=== PATIENT | male | born 1955 | race Caucasian/White ===

== ENCOUNTER 2022-03-13 15:43 | Emergency (ER) | payer MEDICAID ==
[~2022-03-13] VITALS: Ht 175.3 cm; Wt 72.7 kg
[2022-03-13 16:27] VITALS: BP 127/80
== END 2022-03-13 19:14 | disposition home or self-care (01) ==
LOC: ER 15:44
DX: Z76.0 Encounter for issue of repeat prescription (principal)
CPT/HCPCS: 36415; 85610; 99283

== ENCOUNTER 2022-04-10 21:24 | Emergency (ER) | payer MEDICARE, MEDICAID ==
[~2022-04-10] VITALS: Ht 175.3 cm; Wt 72.7 kg
[2022-04-10 22:00] VITALS: BP 96/49
[2022-04-10 22:49] LABS: BASOPHILS % (AUTO) 0.1 % (0-1); EOSINOPHILS # (AUTO) 0.1 X10'3 (0-0.9); EOSINOPHILS % (AUTO) 0.9 % (0-6); HEMATOCRIT 39.2 % (42.0-52.0); LYMPHOCYTES # (AUTO) 1.9 X10'3 (1.1-4.8); MEAN CORPUSCULAR HEMOGLOBIN 29.8 PG (27.0-31.0); MEAN CORPUSCULAR HGB CONC 33.2 g/dL (33.0-36.5); MEAN CORPUSCULAR VOLUME 89.9 FL (78-98); MEAN PLATELET VOLUME 8.8 FL (7.4-10.4); MONOCYTES # (AUTO) 0.9 X10'3 (0-0.9); MONOCYTES % (AUTO) 6.1 % (2-12); NEUTROPHILS # (AUTO) 11.5 X10'3 (1.8-7.7); NEUTROPHILS % (AUTO) 79.9 % (42-75); PLATELET COUNT 224 X10'3 (140-440); RED BLOOD COUNT 4.36 X10'6 (4.70-6.10); RED CELL DISTRIBUTION WIDTH 13.9 % (11.5-14.5); WHITE BLOOD COUNT 14.4 X10'3 (4.5-11.0)
[2022-04-10 23:12] LABS: ALANINE AMINOTRANSFERASE 25 U/L (12-78); ALBUMIN 3.6 G/DL (3.4-5.0); ALKALINE PHOSPHATASE 78 IU/L (46-116); ANION GAP 5 (8-16); ASPARTATE AMINO TRANSFERASE 17 U/L (10-37); BILIRUBIN,TOTAL 0.5 MG/DL (0.1-1.0); BLOOD UREA NITROGEN 32 MG/DL (7-18); BUN/CREATININE RATIO 19.3 (5.4-32.0); CALCIUM 8.9 MG/DL (8.5-10.1); CHLORIDE 105 MMOL/L (99-107); CREATININE 1.66 MG/DL (0.60-1.10); GLUCOSE 116 MG/DL (70-104); SODIUM 138 MMOL/L (135-145); TOTAL CARBON DIOXIDE 27.8 MMOL/L (24-32); TOTAL PROTEIN 7.3 G/DL (6.4-8.2); eGFR 42 ML/MIN
== END 2022-04-11 01:14 | disposition left against medical advice (07) ==
LOC: ER 21:24
DX: R42 Dizziness and giddiness (principal); R11.0 Nausea; Z53.21 Procedure and treatment not carried out due to patient leaving prior to being seen by health care provider
CPT/HCPCS: 36415; 80053; 83880; 84484; 85025; 93005

== ENCOUNTER 2022-06-23 18:30 | Inpatient (IN) | payer MEDICARE, MEDICAID ==
[~2022-06-23] VITALS: Ht 175.3 cm; Wt 74.1 kg
[2022-06-24 09:27] VITALS: BP 126/78
[2022-06-24] MEDS ORDERED: mag hydrox/Alum hydrox/simeth 30ml oral suspension PO PRN (09:30)
[2022-06-24] MEDS ORDERED: magnesium hydroxide 30ml (MOM) UD suspension PO PRN (09:30)
[2022-06-24] MEDS ORDERED: acetaminophen 325mg tablet PO PRN ×2 (09:30)
--- NOTE | 2022-06-24 09:38 | NUR ---
Admit note: Pt admitted today on 5150 for DTS from [facility] at 0904. Pt tried to overdose on Benadryl and continues to endorse suicidal thoughts, saying if he goes back there right now he will try to kill himself again. Pt has history of schizophrenia, HTN, CAD, heart failure, pacemaker. Addendum: 06/24/22 at 1545 by Margaret Price RN Pt. scores as a high risk on the [place] Suicide Risk Assessment, however he is able to contract for safety while on the unit. This was endorsed to GERMAN Plummer and Ajith 15min safety checks were ordered.
[2022-06-24] MEDS ORDERED: LISI10TA27 PO (10:35)
[2022-06-24] MEDS ORDERED: FLO0.4C PO (10:35)
[2022-06-24] MEDS ORDERED: ATOR40TA PO (10:35)
[2022-06-24] MEDS ORDERED: ACYC-1 PO (10:35)
[2022-06-24] MEDS ORDERED: hydralazine hcl PO (10:35)
[2022-06-24] MEDS ORDERED: APIX5TAB3 PO (10:46)
[2022-06-24] MEDS ORDERED: MELA3TAB41 PO (10:46)
[2022-06-24] MEDS ORDERED: SPIR25TA5 PO (10:46)
[2022-06-24] MEDS ORDERED: CARV3.122 PO (10:46)
[2022-06-24] MEDS ORDERED: FURO40TA4 PO (10:46)
[2022-06-24] MEDS: atorvastatin 20mg tablet PO SCH (12:10)
[2022-06-24] MEDS: apixaban 5mg tablet PO SCH ×2 (12:10→20:05)
[2022-06-24] MEDS: hyDRALAzine 10mg tablet PO SCH ×2 (12:11→21:25)
--- NOTE | 2022-06-24 12:17 | NUR ---
Pt's medications were reviewed with RN from [facility] ER by this technical document writer. Per [facility], RN pt. had not received his medications this AM before being transported. Scheduled medications will be administered to pt. at this time.
--- NOTE | 2022-06-24 15:45 | NUR ---
Problem : Pt admitted today on 5150 for DTS from [facility] at 0904. Pt tried to overdose on Benadryl and continues to endorse suicidal thoughts, saying if he goes back there right now he will try to kill himself again. Pt has history of schizophrenia, HTN, CAD, heart failure, pacemaker. Interventions : Introduced self and established rapport, maintained a safe and therapeutic environment, ensured contract for safety while on the unit, clarified medications, provided clear and simple instructions, attempted to orient to reality, provided redirection as needed, and maintained Q 15min safety checks. Response : Pt. was cooperative with the admission assessment, however appears to be hypomanic and presents with pressured and hyperverbal speech. He is tangental and requires frequent redirection back on topic. Pt. reports ongoing S/I with a plan to overdose if released from the hospital. When questioned regarding the cause, pt. states he is upset because "They" are trying to send him back to [facility]. He does not specify who he is referring to, but continues on to talk about how he was previously in shelter for eleven years. Pt. reports his previously and he has no friends or family here. 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 Pt. then points to a picture of a spaceship in the book and states, "I haven't gotten Covid because I was visited by extraterrestrials." Pt. remains up on the unit during the shift and perseverates on what medications he takes and the times he should take them. He requires frequent education and reassurance regarding his medications. This card writer hand will provide pt. with a list of his medications. Pt. has andreas hose in place on his legs which he reports his doctor told him to wear at all times r/t a history of heart failure, will endorse to Noc shift. Plan : Pt. requires a safe and supportive environment and medication adjustments.
[2022-06-24] MEDS: spironolactone 25 MG tablet PO SCH (17:00)
[2022-06-24 17:39] VITALS: BP 114/61
[2022-06-24 20:00] VITALS: BP 130/84
[2022-06-24] MEDS: acyclovir 200 MG capsule PO SCH (20:05)
[2022-06-24] MEDS: Melatonin 3mg tablet PO SCH (20:05)
[2022-06-24] MEDS: carVEDilol 3.125mg tablet PO SCH (20:05)
--- NOTE | 2022-06-25 02:07 | NUR ---
Problem : Pt admitted 06/24 on 5150 for DTS from [facility] at 0904. Pt tried to overdose on Benadryl and continues to endorse suicidal thoughts, saying if he goes back there right now he will try to kill himself again. Pt has history of schizophrenia, HTN, CAD, heart failure, pacemaker. Interventions : Introduced self and established rapport, maintained a safe and therapeutic environment, ensured contract for safety while on the unit, clarified medications, provided clear and simple instructions, attempted to orient to reality, provided redirection as needed, and maintained Q 15min safety checks. Response : This patient primarily isolates in his room following shift change. He is hyperverbal and exhibits grandiose behavior. At times he presents with tangential speech. Patient speaks some Azeri, Zimbabwean, Khmer, and other languages not known to this song writer. He presents with a thick accent. Plan : Pt. requires a safe and supportive environment and medication adjustments. Patient is ambulatory, relatively cooperative, he is concerned about his health. Patient is wearing Luis M hose bilaterally. Patient denies S/I, H/I, hallucinations are unknown. The patient slept after medication pass. Plan: Patient is a conserved patient and continues to require medication stabilization and management in a safe and therapeutic milieu. Addendum: 06/25/22 at 0218 by Luis M Harrison RN Nursing Note for Edilberto Marks Addendum: 06/25/22 at 0402 by Luis M Harrison RN Per another RN this patient was intrusive and verbally threatening his roommate during the evening.
[2022-06-25] MEDS: carVEDilol 3.125mg tablet PO SCH ×2 (08:07→20:03)
[2022-06-25] MEDS: tamsulosin 0.4mg capsule PO SCH (08:08)
[2022-06-25] MEDS: acyclovir 200 MG capsule PO SCH ×2 (08:08→20:05)
[2022-06-25] MEDS: apixaban 5mg tablet PO SCH ×2 (08:08→20:05)
[2022-06-25] MEDS: sertraline 25mg tablet PO SCH (08:08)
[2022-06-25] MEDS: lisinopril 10 MG tablet PO SCH (08:09)
[2022-06-25] MEDS: atorvastatin 20mg tablet PO SCH ×2 (08:10→18:27)
[2022-06-25] MEDS: furosemide 40mg tablet PO SCH (08:10)
[2022-06-25] MEDS: hyDRALAzine 10mg tablet PO SCH ×3 (08:10→20:06)
[2022-06-25 08:41] VITALS: BP 119/54
[2022-06-25 10:20] LABS: HEMOGLOBIN A1C 5.7 % (4.5-6.2)
[2022-06-25 10:25] LABS: CHOLESTEROL 132 MG/DL (0-200); HDL CHOLESTEROL 67 MG/DL (35-60); LDL CHOLESTEROL 46 MG/DL (50-100); TRIGLYCERIDES 92 MG/DL (20-135)
--- NOTE | 2022-06-25 16:27 | NUR ---
Nursing Progress Note: Problem : Pt admitted today on 5150 for DTS from [facility] at 0904. Pt tried to overdose on Benadryl and continues to endorse suicidal thoughts, saying if he goes back there right now he will try to kill himself again. Pt has history of schizophrenia, HTN, CAD, heart failure, pacemaker. Interventions : Introduced self and established rapport, maintained a safe and therapeutic environment, ensured contract for safety while on the unit, clarified medications, provided clear and simple instructions, attempted to orient to reality, provided redirection as needed, and maintained Q 15min safety checks. Response: Patient sleeping at shift change. Patient awoke for breakfast and medications. Patient denies SI. Patient is hyperverbal with pressured speech and is difficult to understand due to his accent and the fact that he is edentulous. Patient reports that he has traveled all over the world and speaks several foreign languages including Maori, Syriac, and Telugu. Patient mostly isolated to his room today. Carries a book with him, but did not observe him reading it. Patient reports that the police have his belongings and would not release them to him. Patient took all medications as prescribed and no side effects were noted. Plan : Pt. requires a safe and supportive environment and medication adjustments.
[2022-06-25] MEDS: spironolactone 25 MG tablet PO SCH (17:56)
[2022-06-25] MEDS: loperamide 2mg capsule PO PRN (17:59)
[2022-06-25 19:57] VITALS: BP 117/79
[2022-06-25] MEDS: Melatonin 3mg tablet PO SCH (20:05)
--- NOTE | 2022-06-26 03:21 | NUR ---
Nursing Progress Note: Problem : Pt admitted today on 5150 for DTS from [facility] at 0904. Pt tried to overdose on Benadryl and continues to endorse suicidal thoughts, saying if he goes back there right now he will try to kill himself again. Pt has history of schizophrenia, HTN, CAD, heart failure, pacemaker. Interventions : Introduced self and established rapport, maintained a safe and therapeutic environment, ensured contract for safety while on the unit, clarified medications, provided clear and simple instructions, attempted to orient to reality, provided redirection as needed, and maintained Q 15min safety checks. Response: Patient is somewhat hyperverbal at times, delusional too. He is medication compliant. Less labile than the previous NOC shift, less intrusive towards his roommate this shift. He denies S/I or H/I. Unknown hallucinations. Plan : Pt. requires a safe and supportive environment and medication adjustments.
[2022-06-26 07:00] VITALS: BP 138/67
[2022-06-26 07:45] LABS: ALBUMIN 3.7 G/DL (3.4-5.0); ANION GAP 7 (8-16); BLOOD UREA NITROGEN 13 MG/DL (7-18); BUN/CREATININE RATIO 19.7 (5.4-32.0); CALCIUM 8.4 MG/DL (8.5-10.1); CHLORIDE 108 MMOL/L (99-107); CREATININE 0.66 MG/DL (0.60-1.10); GLUCOSE 108 MG/DL (70-104); SODIUM 142 MMOL/L (135-145); TOTAL CARBON DIOXIDE 27.5 MMOL/L (24-32); eGFR > 90 ML/MIN
[2022-06-26] MEDS: acyclovir 200 MG capsule PO SCH ×2 (08:32→20:04)
[2022-06-26] MEDS: apixaban 5mg tablet PO SCH ×2 (08:32→20:05)
[2022-06-26] MEDS: carVEDilol 3.125mg tablet PO SCH ×2 (08:32→20:06)
[2022-06-26] MEDS: hyDRALAzine 10mg tablet PO SCH ×3 (08:33→20:05)
[2022-06-26] MEDS: sertraline 25mg tablet PO SCH (08:33)
[2022-06-26] MEDS: atorvastatin 20mg tablet PO SCH (08:34)
[2022-06-26] MEDS: tamsulosin 0.4mg capsule PO SCH (08:34)
[2022-06-26] MEDS: furosemide 40mg tablet PO SCH (08:35)
[2022-06-26] MEDS: lisinopril 10 MG tablet PO SCH (08:35)
[2022-06-26] MEDS: loperamide 2mg capsule PO PRN (13:44)
--- NOTE | 2022-06-26 17:19 | NUR ---
Nursing Progress Note: Problem : Pt admitted today on 5150 for DTS from [facility] at 0904. Pt tried to overdose on Benadryl and continues to endorse suicidal thoughts, saying if he goes back there right now he will try to kill himself again. Pt has history of schizophrenia, HTN, CAD, heart failure, pacemaker. Interventions : Introduced self and established rapport, maintained a safe and therapeutic environment, ensured contract for safety while on the unit, clarified medications, provided clear and simple instructions, attempted to orient to reality, provided redirection as needed, and maintained Q 15min safety checks. Response: Received pt sleeping in bed at shift change. Patient awakens and joins his peers in dining room for breakfast. Patient tends to sit by himself, but does talk to his peers occasionally. Patient eats 100% of his meals. Patient has complained of loose stools for the past two days and was given Imodium with effectiveness. Patient later in the day received his 5250 and is insisting that he did not take Benadryl, but that he took something called "sleeping medicine", OTC. Patient has not been intrusive with his roommate today. Patient takes all medications as prescribed. Compliant with all requests. Patient remains hyperverbal and seems to switch languages on occasion while conversing. Plan : Pt. requires a safe and supportive environment and medication adjustments.
[2022-06-26] MEDS: spironolactone 25 MG tablet PO SCH (18:03)
[2022-06-26 19:18] VITALS: BP 127/70
[2022-06-26] MEDS: Melatonin 3mg tablet PO SCH (20:05)
--- NOTE | 2022-06-26 21:34 | NUR ---
Nursing Progress Note: Problem : Pt admitted today on 5150 for DTS from [facility] at 0904. Pt tried to overdose on Benadryl and continues to endorse suicidal thoughts, saying if he goes back there right now he will try to kill himself again. Pt has history of schizophrenia, HTN, CAD, heart failure, pacemaker. Interventions : Introduced self and established rapport, maintained a safe and therapeutic environment, ensured contract for safety while on the unit, clarified medications, provided clear and simple instructions, attempted to orient to reality, provided redirection as needed, and maintained Q 15min safety checks. Response: Pt was in his room at change of shift, then moves to the fernandez chair. pt denies s/i. Pt spends evening sitting alone, isolating to himself. Pt requests meds and went to bed. Shortly after going to bed pt c/o roommate bothering him and pt was moved to another room. Pt seems to be happy with the room change. Plan : Pt. requires a safe and supportive environment and medication adjustments.
--- NOTE | 2022-06-27 07:28 | NUR ---
Initial: Pt admitted w/ suicidal ideations per EMR. Currently on Carb control/Heart Healthy diet w/ mostly 100% intake of meals meeting est needs at this time. Recommend liberalizing to Regular diet given lipid panel and pt does not have hx of DM per EMR and A1c 5.7. LBM 06/24. Will continue to monitor. Recommendations 1. Liberalize to REGULAR DIET; no hx of DM in EMR, non-elevated lipid panel 2. Bowel care PRN 3. Weekly wts Addendum: 06/27/22 at [address]ñez RD Amended: Links added.
[2022-06-27] MEDS: furosemide 40mg tablet PO SCH (07:56)
[2022-06-27] MEDS: lisinopril 10 MG tablet PO SCH (07:56)
[2022-06-27] MEDS: hyDRALAzine 10mg tablet PO SCH ×3 (07:56→20:02)
[2022-06-27] MEDS: sertraline 25mg tablet PO SCH (07:56)
[2022-06-27] MEDS: tamsulosin 0.4mg capsule PO SCH (07:56)
[2022-06-27] MEDS: acyclovir 200 MG capsule PO SCH ×2 (07:56→19:56)
[2022-06-27] MEDS: apixaban 5mg tablet PO SCH ×2 (07:56→19:56)
[2022-06-27] MEDS: carVEDilol 3.125mg tablet PO SCH ×2 (07:56→19:56)
[2022-06-27] MEDS: atorvastatin 20mg tablet PO SCH (07:56)
[2022-06-27 08:00] VITALS: BP 105/66
[2022-06-27 11:59] VITALS: BP 111/66
--- NOTE | 2022-06-27 14:25 | NUR ---
Problem : Pt admitted 06/24 on 5150 for DTS from [facility]. Pt tried to overdose on Benadryl and continues to endorse suicidal thoughts, saying if he goes back to the hotel or to [facility], he will try to kill himself again. Pt has history of schizophrenia, HTN, CAD, heart failure, pacemaker. Interventions : 1:1 assessment, establishment of rapport, maintained a safe and therapeutic environment, ensured contract for safety while on the unit, medication administration/education/monitoring, BP & HR monitoring, provided clear and simple instructions, attempted to orient to reality, provided distraction,redirection, and positive reinforcement, fall prevention, and maintained Q15 min safety checks. Response : Pt was up before breakfast. Pt was cooperative with scheduled medications. Pt is hyperverbal with pressured speech and is somewhat difficult to understand due to heavy accent and no teeth. Pt states that he is "very much depressed." Pt states he doesn't want to return to [facility], there is nothing for him there and if he has to go back, he will be put in penitentiary or he will kill himself by taking too many sleeping pills like before. Pt contracts for safety here on the unit. Pt states he just wants to be placed in a mental hospital. Pt states that he was actually born in [birth year] but his certificate says [birth year], ( date on file is in June.) Pt c/o not sleeping last night, "maybe too much worry." Plan: Pt continues to need medication management and monitoring as well as behavior monitoring in a safe and therapeutic environment to prevent harm to self.
--- NOTE | 2022-06-27 16:30 | NUR ---
Pt moved to room 332B due to noisy roommate who was responding to internal stimuli with loud profanities.
[2022-06-27 17:02] VITALS: BP 112/60
[2022-06-27] MEDS: spironolactone 25 MG tablet PO SCH (17:25)
[2022-06-27 19:26] VITALS: BP 138/62
[2022-06-27] MEDS: Melatonin 3mg tablet PO SCH (19:55)
--- NOTE | 2022-06-27 21:08 | NUR ---
Nursing Progress Note: Problem : Pt admitted 06/24 on 5150 for DTS from [facility]. Pt tried to overdose on Benadryl and continues to endorse suicidal thoughts, saying if he goes back to the hotel or to [facility], he will try to kill himself again. Pt has history of schizophrenia, HTN, CAD, heart failure, pacemaker. Interventions : 1:1 assessment, establishment of rapport, maintained a safe and therapeutic environment, ensured contract for safety while on the unit, medication administration/education/monitoring, BP & HR monitoring, provided clear and simple instructions, attempted to orient to reality, provided distraction,redirection, and positive reinforcement, fall prevention, and maintained Q15 min safety checks. Response : Pt was talking with other patients at change of shift. He reports he was having chest pain and nausea during the day but is no longer having it. Pt reports he is happy with the room change because he didnt like hearing his roommate cussing. He is hopeful he will get better sleep tonight. Pt requests melatonin and informed he will receive melatonin with meds. Pt states this is good. 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 He talks about his book being about a "parallel universe and how the universe was created." Pt talks about having "visions" when he was younger about his brother dying. He believes aliens abducted him and put an implant in his head. Pt states he is Ivorian and Greek and speaks several different languages and has been to many countries. Pt states he came to the [facility] originally to work on the [employer]. pt was in a pleasant mood this evening smiling before going to bed. Plan: Pt continues to need medication management and monitoring as well as behavior monitoring in a safe and therapeutic environment to prevent harm to self.
[2022-06-28 07:57] VITALS: BP 137/66
[2022-06-28] MEDS: carVEDilol 3.125mg tablet PO SCH ×2 (07:59→19:33)
[2022-06-28] MEDS: furosemide 40mg tablet PO SCH (07:59)
[2022-06-28] MEDS: lisinopril 10 MG tablet PO SCH (07:59)
[2022-06-28] MEDS: atorvastatin 20mg tablet PO SCH (07:59)
[2022-06-28] MEDS: hyDRALAzine 10mg tablet PO SCH ×3 (08:00→19:32)
[2022-06-28] MEDS: sertraline 25mg tablet PO SCH (08:00)
[2022-06-28] MEDS: tamsulosin 0.4mg capsule PO SCH (08:00)
[2022-06-28] MEDS: apixaban 5mg tablet PO SCH ×2 (08:00→19:33)
[2022-06-28] MEDS: acyclovir 200 MG capsule PO SCH ×2 (08:00→19:33)
[2022-06-28 12:07] VITALS: BP 121/63
--- NOTE | 2022-06-28 15:58 | NUR ---
Nursing Progress Note: Problem : Pt admitted 06/24 on 5150 for DTS from [facility]. Pt tried to overdose on Benadryl and continues to endorse suicidal thoughts, saying if he goes back to the hotel or to [facility], he will try to kill himself again. Pt has history of schizophrenia, HTN, CAD, heart failure, pacemaker. Interventions : 1:1 assessment, establishment of rapport, maintained a safe and therapeutic environment, ensured contract for safety while on the unit, medication administration/education/monitoring, BP & HR monitoring, provided clear and simple instructions, attempted to orient to reality, provided distraction,redirection, and positive reinforcement, fall prevention, and maintained Q15 min safety checks. Response : Pt was up before breakfast. Pt was cooperative with scheduled medications. Pt is hyperverbal with pressured speech and loose associations at times. Pt c/o some mild nausea when he drinks water. Pt continues to endorse depression, contracts for safety here but continues to voice that if he were discharged back to [facility] that he would kill himself. Pt is present in the milieu, he spends much time in the community room. Pt showered today. No unsafe behaviors noted. Plan: Pt continues to need stabilization with medication management and monitoring as well as behavior monitoring in a safe and therapeutic environment.
[2022-06-28 18:07] VITALS: BP 149/57
[2022-06-28] MEDS: spironolactone 25 MG tablet PO SCH (18:08)
[2022-06-28] MEDS: Melatonin 3mg tablet PO SCH (19:32)
[2022-06-28 20:00] VITALS: BP 142/78
--- NOTE | 2022-06-28 23:27 | NUR ---
Nursing Progress Note: Problem : Pt admitted 06/24 on 5150 for DTS from [facility]. Pt tried to overdose on Benadryl and continues to endorse suicidal thoughts, saying if he goes back to the hotel or to [facility], he will try to kill himself again. Pt has history of schizophrenia, HTN, CAD, heart failure, pacemaker. Intervention; One to one with the patient to assess severity of thought disorder, depressive symptoms and self harm risk. Response: The patient was pleasant on approach. He was very difficult to understand his replies to the assessment questions 2nd to his speech being fast, pressured and he mumbled. He also spoke in more than one language. 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 He did state that he did not want to go back to [facility] and if he was made to go back there he would kill himself. He stated that he would rather be in the hospital than back in [facility]. Plan: Continue plan of care and medication management.
[2022-06-29 07:36] VITALS: BP 136/69
[2022-06-29] MEDS: furosemide 40mg tablet PO SCH (07:43)
[2022-06-29] MEDS: atorvastatin 20mg tablet PO SCH (07:43)
[2022-06-29] MEDS: hyDRALAzine 10mg tablet PO SCH ×3 (07:43→21:10)
[2022-06-29] MEDS: carVEDilol 3.125mg tablet PO SCH ×2 (07:43→21:09)
[2022-06-29] MEDS: tamsulosin 0.4mg capsule PO SCH (07:44)
[2022-06-29] MEDS: acyclovir 200 MG capsule PO SCH ×2 (07:44→21:09)
[2022-06-29] MEDS: sertraline 25mg tablet PO SCH (07:44)
[2022-06-29] MEDS: lisinopril 10 MG tablet PO SCH (07:44)
[2022-06-29] MEDS: apixaban 5mg tablet PO SCH ×2 (07:44→21:11)
[2022-06-29 12:53] VITALS: BP 129/72
--- NOTE | 2022-06-29 13:34 | NUR ---
5250 UPHELD FOR GD AND DTS
--- NOTE | 2022-06-29 13:38 | NUR ---
Nursing Progress Note: Problem : Pt admitted 06/24 on 5150 for DTS from [facility]. Pt tried to overdose on Benadryl and continues to endorse suicidal thoughts, saying if he goes back to the hotel or to [facility], he will try to kill himself again. Pt has history of schizophrenia, HTN, CAD, heart failure, pacemaker. Interventions : 1:1 assessment, establishment of rapport, maintained a safe and therapeutic environment, ensured contract for safety while on the unit, medication administration/education/monitoring, BP & HR monitoring, provided clear and simple instructions, attempted to orient to reality, provided distraction,redirection, and positive reinforcement, fall prevention, and maintained Q15 min safety checks. Response : Pt was up before breakfast and cooperative with medications. Pt requested to shave. Pt states he shaves every Sunday, Sunday, and Sunday but he didn't get to shave yesterday. This RN supervised pt while shaving in his room. Pt has pressured speech, pt is hyperverbal and tangential. Pt talked nonstop the entire time while shaving which took around 10 minutes, pt barely took breaths in between sentences. 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 I don't like the city." Pt asked this nurse if I was then stated, "I want to get again but it's hard to find a single lady." Pt rambled on about [facility], his brother, everyone likes beautiful things. He said several other seemingly unrelated things though much of what he said was difficult to understand due to his pressured speech, his heavy Moroccan accent and his lack of teeth. Pt is animated, grandiose and probably delusional. Pt states that he is royalty, pt states that he is a descendent of the Emperor Zane. Pt states he knows many languages. He is Bulgarian and Tristanian, he lived in [place]. He loves "beautiful womens" Pt continues to endorse depression and continues to stated that he will kill himself if discharged somewhere he does not wish to go. Pt had a hearing today and his 5250 was upheld. Plan: Pt continues to need stabilization with medication management and monitoring as well as behavior monitoring in a safe and therapeutic environment.
--- NOTE | 2022-06-29 14:14 | NUR ---
CONTACT, STATE PAROLE S: Client's discharge options B: [facility] contacted by Mel Jeter, [facility] clinical interpretive naturalist [phone]. Ildefonso Jeter reported client is in [place] because he was enrolled-- by parole-- in the [facility] program (based out of the hotel where client was living). Ildefonso Jeter reports parole informed Client has been advised his best interests are to return to [facility]/not leave the [facility]. Ildefonso Jeter stated client was discharged from long-term without medications, and had a diagnoses of BPD. A. And option may be to return to a program in [place], with Learning And Development Assistant's approval. R. Contact control room agent for clarity, and potential assistance getting client back into [facility] program or other program. Left a message for client's control room agentgiovanni Riggins [phone]. Addendum: 07/03/22 at 0943 by Caitlyn WORTHY Subsequent conversation 06/29/22: Learning And Development AssistantGiovanni Riggins. Client cannot return to [facility] program: They will not accept him back. [facility] "declined interstate transfer". Giovanni Riggins stated client's option is to return to [facility]. They will provide transport, either via state or a bus ticket, and potentially (not guaranteed) pay for a few days in a hotel.
--- NOTE | 2022-06-29 15:49 | NUR ---
Pt is stating that his pacemaker needs to be checked Q 3 mos and was due to be checked on June 07.
[2022-06-29] MEDS: spironolactone 25 MG tablet PO SCH (17:00)
[2022-06-29 20:00] VITALS: BP 144/69
[2022-06-29] MEDS: Melatonin 3mg tablet PO SCH (21:14)
--- NOTE | 2022-06-29 23:28 | NUR ---
Nursing Progress Note: Problem : Pt admitted 06/24 on 5150 for DTS from [facility]. Pt tried to overdose on Benadryl and continues to endorse suicidal thoughts, saying if he goes back to the hotel or to [facility], he will try to kill himself again. Pt has history of schizophrenia, HTN, CAD, heart failure, pacemaker. Intervention; One to one with the patient to assess severity of thought disorder, depressive symptoms and self harm risk. Response: The patient has been up and social on the unit. When approached for the nursing assessment his speech was so rapid with a flight of ideas it was difficult to understand what he was saying. He stated that he can speak 39 different languages "not including dialects" At one point he also alleged that he worked on the [employer]. He told a female nurse that "I love your body. I want to you" He is continuing to state that he will kill himself if he is made to return to [facility]. Plan; Continue plan of care. Provide redirection from inappropriate comments or behaviors. Assess mood and self harm risk every shift and prn.
[2022-06-30 07:29] VITALS: BP 121/65
[2022-06-30] MEDS: furosemide 40mg tablet PO SCH (07:47)
[2022-06-30] MEDS: carVEDilol 3.125mg tablet PO SCH ×2 (07:47→20:31)
[2022-06-30] MEDS: tamsulosin 0.4mg capsule PO SCH (07:47)
[2022-06-30] MEDS: hyDRALAzine 10mg tablet PO SCH ×3 (07:47→20:31)
[2022-06-30] MEDS: apixaban 5mg tablet PO SCH ×2 (07:47→20:31)
[2022-06-30] MEDS: atorvastatin 20mg tablet PO SCH (07:48)
[2022-06-30] MEDS: acyclovir 200 MG capsule PO SCH ×2 (07:49→20:31)
[2022-06-30] MEDS: lisinopril 10 MG tablet PO SCH (07:49)
[2022-06-30] MEDS: sertraline 25mg tablet PO SCH (07:49)
[2022-06-30 14:20] VITALS: BP 106/55
--- NOTE | 2022-06-30 17:45 | NUR ---
Nursing Progress Note: Problem : Pt was admitted on 5150 for DTS from [facility]. Pt tried to overdose on Benadryl and continues to endorse suicidal thoughts, saying if he goes back there right now he will try to kill himself again. Pt has history of schizophrenia, HTN, CAD, heart failure, pacemaker. Interventions : Maintained a safe and therapeutic environment, ensured contract for safety while on the unit, provided clear and simple instructions, attempted to orient to reality, monitored for sexual inappropriateness and provided redirection as needed, endorsed pt's behaviors to GERMAN Plummer and obtained orders for pt. to begin a mood stabilizer, and maintained Q 15min safety checks. Response : Received pt. sleeping in bed at the beginning of the shift, he awoke and attended breakfast in the Group Room. Pt. greeted this sql report writer animatedly and continues to present as hypomanic with hyperverbal and pressured speech. Pt. stated, "I need medications and I need a woman!" He continued on with a tangental thought process to talk about several other seemingly unrelated topics though much of what he he says remains difficult to understand due to his pressured speech, rapid shift in topics, and Bangladeshi accent. Pt. continues to report ongoing S/I with a plan to overdose if sent to live in [facility]. He states in what appears to be a delusional manner, "I have heart failure and there are not good doctors there. I want to stay in [place] for the pretty ladies and the pretty buildings." Pt. continues to make frequent grandiose delusional statements. He is also sexually inappropriate asking women on the unit if they want to get or if they want to come to his room for sex. Pt. was provided education by this sql report writer regarding the inappropriateness of these statements and he reported some understanding. These behaviors were also endorsed to GERMAN Plummer. Pt. remained up throughout the shift and was observed to be attempting engage others in conversation, however his remains very hyperverbal and appears to have difficulty reciprocally engaging. Plan : Pt. requires a safe and supportive environment and medication adjustments.
[2022-06-30 18:01] VITALS: BP 119/62
[2022-06-30] MEDS: spironolactone 25 MG tablet PO SCH (18:03)
[2022-06-30 19:29] VITALS: BP 125/67
[2022-06-30] MEDS: Melatonin 3mg tablet PO SCH (20:31)
[2022-06-30] MEDS: divalproex sod 250mg ER (24-hour) tablet PO SCH (20:32)
--- NOTE | 2022-07-01 00:58 | NUR ---
Nursing Progress Note: Problem : Pt was admitted on 5150 for DTS from [facility]. Pt tried to overdose on Benadryl and continues to endorse suicidal thoughts, saying if he goes back there right now he will try to kill himself again. Pt has history of schizophrenia, HTN, CAD, heart failure, pacemaker. Interventions : Maintained a safe and therapeutic environment, ensured contract for safety while on the unit, provided clear and simple instructions, attempted to orient to reality, monitored for sexual inappropriateness and provided redirection as needed, endorsed pt's behaviors to GERMAN Plummer and obtained orders for pt. to begin a mood stabilizer, and maintained Q 15min safety checks. Response : Patient was received sitting in community room watching tv. Patient continued to go back and forth between his room and the community room. When nurse tried to talked to patient his speech was fast and garbled. Patient had to be reminded multiple times who his nurse is since he kept referring to someone who isnt here. Patient participated in snack time and then became very agitated asking for his night medications. Patient states he only sleeps three hours a night so he needs his Meds exactly at 8 because he will be up ay midnight. Patient took all medications and returned to bed. Plan : Pt. requires a safe and supportive environment and medication adjustments.
[2022-07-01] MEDS: hyDRALAzine 10mg tablet PO SCH ×3 (07:58→21:01)
[2022-07-01] MEDS: furosemide 40mg tablet PO SCH (07:59)
[2022-07-01] MEDS: apixaban 5mg tablet PO SCH ×2 (07:59→21:00)
[2022-07-01] MEDS: atorvastatin 20mg tablet PO SCH (07:59)
[2022-07-01] MEDS: tamsulosin 0.4mg capsule PO SCH (07:59)
[2022-07-01] MEDS: carVEDilol 3.125mg tablet PO SCH ×2 (07:59→21:01)
[2022-07-01 08:00] VITALS: BP 133/58
[2022-07-01] MEDS ORDERED: sertraline 25mg tablet PO SCH (08:00)
[2022-07-01] MEDS: lisinopril 10 MG tablet PO SCH (08:00)
[2022-07-01] MEDS: acyclovir 200 MG capsule PO SCH ×2 (08:00→21:01)
[2022-07-01 13:35] VITALS: BP 129/60
--- NOTE | 2022-07-01 16:24 | NUR ---
Nursing Progress Note: Problem : Pt was admitted on 5150 for DTS from [facility]. Pt tried to overdose on Benadryl and continues to endorse suicidal thoughts, saying if he goes back there right now he will try to kill himself again. Pt has history of schizophrenia, HTN, CAD, heart failure, pacemaker. Interventions : Maintained a safe and therapeutic environment, ensured contract for safety while on the unit, provided clear and simple instructions, attempted to orient to reality, attempted to orient to reality, and maintained Q 15min safety checks. Response : Received pt. sleeping in bed at the beginning of the shift, he awoke and attended breakfast in the Group Room, and afterwards remained up to watch TV as is his routine. Pt. again greeted this technical proposal writer animatedly, however did not request his AM medications immediately and presents with less perseveration. Pt. continues to present as hypomanic with hyperverbal and pressured speech. He again speaks with a tangental thought process about unrelated topics and is difficult to redirect. Pt. continues to report ongoing S/I with a plan to overdose if sent to live in [facility]. He does not make any delusional statements or sexually inappropriate comments this shift. Pt. remained up throughout the shift and was again observed to be attempting engage others in conversation, however his remains very hyperverbal and appears to have difficulty reciprocally engaging. Plan : Pt. requires a safe and supportive environment and medication adjustments.
[2022-07-01 17:35] VITALS: BP 118/62
[2022-07-01] MEDS: spironolactone 25 MG tablet PO SCH (17:36)
[2022-07-01 19:00] VITALS: BP 147/68
[2022-07-01] MEDS: divalproex sod 250mg ER (24-hour) tablet PO SCH (21:01)
[2022-07-01] MEDS: Melatonin 3mg tablet PO SCH (21:02)
--- NOTE | 2022-07-02 03:25 | NUR ---
Nursing Progress Note: Problem : Pt was admitted on 5150 for DTS from [facility]. Pt tried to overdose on Benadryl and continues to endorse suicidal thoughts, saying if he goes back there right now he will try to kill himself again. Pt has history of schizophrenia, HTN, CAD, heart failure, pacemaker. Interventions : Maintained a safe and therapeutic environment, ensured contract for safety while on the unit, provided clear and simple instructions, attempted to orient to reality, monitored for sexual inappropriateness and provided redirection as needed, endorsed pt's behaviors to GERMAN Plummer and obtained orders for pt. to begin a mood stabilizer, and maintained Q 15min safety checks. Response : pt in community room at shift change, wearing regular clothes; pt hyperverbal & difficult to understand; irritable when doing routine physical assessment; denies SI or HI; denies hearing voices; took routine scheduled meds; stated he had chest pain yesterday morning, but okay since. Plan : Pt. requires a safe and supportive environment and medication adjustments.
[2022-07-02] MEDS: atorvastatin 20mg tablet PO SCH (07:42)
[2022-07-02] MEDS: carVEDilol 3.125mg tablet PO SCH ×2 (07:42→20:07)
[2022-07-02] MEDS: sertraline 25mg tablet PO SCH (07:42)
[2022-07-02] MEDS: furosemide 40mg tablet PO SCH (07:43)
[2022-07-02] MEDS: tamsulosin 0.4mg capsule PO SCH (07:43)
[2022-07-02] MEDS: hyDRALAzine 10mg tablet PO SCH ×3 (07:43→20:07)
[2022-07-02] MEDS: lisinopril 10 MG tablet PO SCH (07:43)
[2022-07-02] MEDS: apixaban 5mg tablet PO SCH ×2 (07:43→20:08)
[2022-07-02] MEDS: acyclovir 200 MG capsule PO SCH ×2 (07:43→20:08)
[2022-07-02 08:00] VITALS: BP 132/68
[2022-07-02] MEDS: spironolactone 25 MG tablet PO SCH (17:39)
--- NOTE | 2022-07-02 18:01 | NUR ---
Problem: Pt was admitted on 5150 for DTS from [facility]. Pt tried to overdose on Benadryl and continues to endorse suicidal thoughts, saying if he goes back there right now he will try to kill himself again. Pt has history of schizophrenia, HTN, CAD, heart failure, pacemaker. Interventions: Maintained a safe and therapeutic environment, ensured contract for safety while on the unit, provided clear and simple instructions, attempted to orient to reality, and maintained Q 15min safety checks. Response: Received pt. sleeping in bed at the beginning of the shift, he awoke and attended breakfast in the Group Room, and afterwards remained up to watch TV as is his routine. Pt. continues to present as hypomanic with hyperverbal and pressured speech. He again speaks with a tangental thought process about unrelated topics and is difficult to redirect. Pt. continues to report ongoing S/I with a plan to overdose if sent to live in [facility]. He does not make any delusional statements or sexually inappropriate comments this shift. Pt. remained up throughout the shift and was again observed to be attempting to engage others in conversation, however he remains very hyperverbal and appears to have difficulty reciprocally engaging. Plan : Pt. requires a safe and supportive environment and medication adjustments.
[2022-07-02 20:00] VITALS: BP 145/64
[2022-07-02] MEDS: divalproex sod 250mg ER (24-hour) tablet PO SCH (20:07)
[2022-07-02] MEDS: Melatonin 3mg tablet PO SCH (20:08)
--- NOTE | 2022-07-03 01:37 | NUR ---
Nursing Progress Note: Problem : Pt was admitted on 5150 for DTS from [facility]. Pt tried to overdose on Benadryl and continues to endorse suicidal thoughts, saying if he goes back there right now he will try to kill himself again. Pt has history of schizophrenia, HTN, CAD, heart failure, pacemaker. Interventions : Maintained a safe and therapeutic environment, ensured contract for safety while on the unit, provided clear and simple instructions, attempted to orient to reality, monitored for sexual inappropriateness and provided redirection as needed, endorsed pt's behaviors to GERMAN Plummer and obtained orders for pt. to begin a mood stabilizer, and maintained Q 15min safety checks. Response : Patient sitting in community room with peers talking at shift change. The patient presents with hyperverbal pressured speech. Patient reports that he will kill himself if he goes back to [facility]. When asked why it is hard to make out exactly why as the pt moves from topic to topic and is difficult to redirect. The patient approached this nurse several times asking about meds and reminding me of the time. The patient ate snack in community room and took meds w/o complications. Patient went to bed shortly after. Plan : Pt. requires a safe and supportive environment and medication adjustments.
[2022-07-03 08:00] VITALS: BP 132/73
[2022-07-03] MEDS: apixaban 5mg tablet PO SCH ×2 (08:25→19:43)
[2022-07-03] MEDS: carVEDilol 3.125mg tablet PO SCH ×2 (08:25→19:43)
[2022-07-03] MEDS: furosemide 40mg tablet PO SCH (08:25)
[2022-07-03] MEDS: sertraline 25mg tablet PO SCH (08:25)
[2022-07-03] MEDS: hyDRALAzine 10mg tablet PO SCH ×3 (08:25→19:44)
[2022-07-03] MEDS: tamsulosin 0.4mg capsule PO SCH (08:25)
[2022-07-03] MEDS: acyclovir 200 MG capsule PO SCH ×2 (08:26→19:44)
[2022-07-03] MEDS: lisinopril 10 MG tablet PO SCH (08:26)
[2022-07-03] MEDS: atorvastatin 20mg tablet PO SCH (08:26)
--- NOTE | 2022-07-03 11:10 | NUR ---
DISCHARGE PLANNING, TRANSPORTATION TO [place] Re transportation to [facility] by state parole. Possible available Sunday07/05/22. Source: Spoke airline customer service agentabimael Riggins, .Agent Gilson indicated she will discuss with her commercial instructor supervisor, and call back.
--- NOTE | 2022-07-03 12:19 | NUR ---
CONTACT, [facility] PAROLE Client's client's product managent intern Gilson [phone] called back, stating she is going to be passing off client's discharge planning to parole's behavioral health contact: Mel Jeter [place] [employer] clinical photo technician [phone].
--- NOTE | 2022-07-03 16:27 | NUR ---
Nursing Progress Note Problem : Pt was admitted on 5150 for DTS from [facility]. Pt tried to overdose on Benadryl and continues to endorse suicidal thoughts, saying if he goes back there right now he will try to kill himself again. Pt has history of schizophrenia, HTN, CAD, heart failure, pacemaker. Interventions : Maintained a safe and therapeutic environment, ensured contract for safety while on the unit, provided clear and simple instructions, attempted to orient to reality, attempted to orient to reality, and maintained Q 15min safety checks. Response : Received Pt sleeping in his bed w/o distress at the beginning of this shift. Pt woke and was cooperative with vitals. Pt attended breakfast and ate well, as he did all meals. Pt took AM meds w/o issue. 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 Pt made many requests r/t the TV and getting needs met like ice water. Pt spoke with MD and social service liaison at length this morning r/t [place] planning and parole in [place] county. Pt speaks with pressured speech when he wants something and is tangential in conversation. Pts concerns center around getting current needs met. Pt minimizes and denies MH sxs. Plan : Pt. requires a safe and supportive environment and medication adjustments.
[2022-07-03] MEDS: spironolactone 25 MG tablet PO SCH (17:11)
[2022-07-03 19:27] VITALS: BP 127/68
[2022-07-03] MEDS: Melatonin 3mg tablet PO SCH (19:43)
[2022-07-03] MEDS: divalproex sod 250mg ER (24-hour) tablet PO SCH (19:44)
--- NOTE | 2022-07-04 00:23 | NUR ---
Nursing Progress Note: Problem : Pt was admitted on 5150 for DTS from [facility]. Pt tried to overdose on Benadryl and continues to endorse suicidal thoughts, saying if he goes back there right now he will try to kill himself again. Pt has history of schizophrenia, HTN, CAD, heart failure, pacemaker. Interventions : Maintained a safe and therapeutic environment, ensured contract for safety while on the unit, provided clear and simple instructions, attempted to orient to reality, monitored for sexual inappropriateness and provided redirection as needed, endorsed pt's behaviors to GERMAN Plummer and obtained orders for pt. to begin a mood stabilizer, and maintained Q 15min safety checks. Response : Patient in community room at shift change. The patient continues to use pressured speech and is hard to redirect at times. Patient main complaint was getting meds to early and not sleeping at night. The patient was able to talk out his grievances and was okay by the end of a very long rant. Patient made several comments about not wanting to go to [place]. Patient given evening meds before snack time which seemed to make the patient happy. The patient then ate snack in community room with cohorts. Patient went to bed shortly after. Plan : Pt. requires a safe and supportive environment and medication adjustments.
[2022-07-04 08:00] VITALS: BP 119/64
[2022-07-04] MEDS: acyclovir 200 MG capsule PO SCH ×2 (08:13→19:12)
[2022-07-04] MEDS: sertraline 25mg tablet PO SCH (08:14)
[2022-07-04] MEDS: furosemide 40mg tablet PO SCH (08:14)
[2022-07-04] MEDS: atorvastatin 20mg tablet PO SCH (08:14)
[2022-07-04] MEDS: tamsulosin 0.4mg capsule PO SCH (08:14)
[2022-07-04] MEDS: apixaban 5mg tablet PO SCH ×2 (08:14→19:12)
[2022-07-04] MEDS: carVEDilol 3.125mg tablet PO SCH ×2 (08:15→19:12)
[2022-07-04] MEDS: hyDRALAzine 10mg tablet PO SCH ×3 (08:15→20:05)
[2022-07-04] MEDS: lisinopril 10 MG tablet PO SCH (08:15)
[2022-07-04] MEDS: spironolactone 25 MG tablet PO SCH (17:17)
--- NOTE | 2022-07-04 17:34 | NUR ---
Nursing Progress Note: Problem : Pt was admitted on 5150 for DTS from [facility]. Pt tried to overdose on Benadryl and continues to endorse suicidal thoughts, saying if he goes back there right now he will try to kill himself again. Pt has history of schizophrenia, HTN, CAD, heart failure, pacemaker. Interventions : Maintained a safe and therapeutic environment, ensured contract for safety while on the unit, provided clear and simple instructions, attempted to orient to reality, monitored for sexual inappropriateness and provided redirection as needed, endorsed pt's behaviors to GERMAN Plummer and obtained orders for pt. to begin a mood stabilizer, and maintained Q 15min safety checks. Response : Patient was asleep at [facility], but came down for breakfast and morning med pass. He is always nicely groomed, and expects his medications right on time, regardless of other people. He is compliant with all medications, and has no complaints about them. Patient perseverates on [facility], and his stated unwillingness to go back there. He seems to be worrier. Patient will most likely be able to stay in [place], due to all his providers are here. As long as I dont have to go back to [place]. Plan : Pt. requires a safe and supportive environment and medication adjustments.
[2022-07-04] MEDS: divalproex sod 250mg ER (24-hour) tablet PO SCH (19:12)
[2022-07-04] MEDS: Melatonin 3mg tablet PO SCH (20:04)
[2022-07-04 20:50] VITALS: BP 144/73
--- NOTE | 2022-07-05 00:59 | NUR ---
Nursing Progress Note: Problem : Pt was admitted on 5150 for DTS from [facility]. Pt tried to overdose on Benadryl and continues to endorse suicidal thoughts, saying if he goes back there right now he will try to kill himself again. Pt has history of schizophrenia, HTN, CAD, heart failure, pacemaker. Interventions : Maintained a safe and therapeutic environment, ensured contract for safety while on the unit, provided clear and simple instructions, attempted to orient to reality, monitored for sexual inappropriateness and provided redirection as needed, endorsed pt's behaviors to GERMAN Plummer and obtained orders for pt. to begin a mood stabilizer, and maintained Q 15min safety checks. Response : Patient found this nurse at beginning of shift to talk about evening meds. Patient perseverated on medication schedule for most of the evening. The patient wanted most of his medications at 1900 and melatonin and Hydralazine at 20:00. Patient took evening meds at 1900 w/o complications. Patient continued to approach nurse reminding her of meds to be taken at 20:00. Patient ate snack in community room and took rest of his evening meds w/o complications. Patient said thank you and liya to bed shortly after. Plan : Pt. requires a safe and supportive environment and medication adjustments.
--- NOTE | 2022-07-05 07:23 | NUR ---
Reassessment: Pt continues on Carb control/Heart Healthy diet w/ mostly 100% intake of meals meeting est needs at this time. Recommend liberalizing to Regular diet given lipid panel and pt does not have hx of DM per EMR and A1c 5.7. LBM 07/04. Will continue to monitor. Recommendations 1. Liberalize to REGULAR DIET; no hx of DM in EMR, non elevated lipid panel 2. Bowel care PRN 3. Weekly wts Addendum: 07/05/22 at [address] RD Amended: Links added.
[2022-07-05] MEDS: lisinopril 10 MG tablet PO SCH (07:32)
[2022-07-05] MEDS: sertraline 25mg tablet PO SCH (07:32)
[2022-07-05] MEDS: hyDRALAzine 10mg tablet PO SCH ×3 (07:32→19:38)
[2022-07-05] MEDS: acyclovir 200 MG capsule PO SCH ×2 (07:32→19:38)
[2022-07-05] MEDS: furosemide 40mg tablet PO SCH (07:32)
[2022-07-05] MEDS: carVEDilol 3.125mg tablet PO SCH ×2 (07:32→19:37)
[2022-07-05] MEDS: atorvastatin 20mg tablet PO SCH (07:32)
[2022-07-05] MEDS: tamsulosin 0.4mg capsule PO SCH (07:32)
[2022-07-05] MEDS: apixaban 5mg tablet PO SCH ×2 (07:33→19:38)
[2022-07-05 07:39] VITALS: BP 160/74
--- NOTE | 2022-07-05 08:01 | NUR ---
DISCHARGE PLANNING, REQUESTED ASSISTANCE, [facility] Left msgs for [facility] adult parole requesting assistance on their client's discharge: Client's ferry terminal agent Gilson [phone] called back, and parole's behavioral health contact Mel Jeter [facility] clinical induction heat treater [phone].
--- NOTE | 2022-07-05 10:09 | NUR ---
DISCHARGE PLANNING, PAROLE S. Discharging client. B: Ildefonso Moreno, [facility] parole, provided [facility] supervisor sample preparation Eddi Taylor's number [phone]. Visual Merchandising Director Eddi Taylor was informed client is cleared for discharge, and has been since Sunday. This credit underwriter indicated state resolution agent Gilson assured [facility] client would be transported by her/parole to [place], or put client on a bus to [place], indicated that is parole's requirement client return to [place]: [facility] accepted this as a discharge plan in collaboration with Supervisor Speech Gilson. Visual Merchandising Director Eddi Taylor stated not wanting this discharge plan, indicating [facility] "is making this our problem... what if something happens, then it's on us". Visual Merchandising Director Eddi Taylor indicated any criminal activity was also not their area, it would be [place] police department. R. This credit underwriter referred Visual Merchandising Director Eddi Taylor to Fabricio Hedrick, Director.
--- NOTE | 2022-07-05 14:23 | NUR ---
[facility] REFERRAL Completed and sent [facility] referral. EDWINA Hardy
[2022-07-05] MEDS: spironolactone 25 MG tablet PO SCH (17:16)
--- NOTE | 2022-07-05 17:32 | NUR ---
Nursing Progress Note: Problem : Pt was admitted on 5150 for DTS from [facility]. Pt tried to overdose on Benadryl and continues to endorse suicidal thoughts, saying if he goes back there right now he will try to kill himself again. Pt has history of schizophrenia, HTN, CAD, heart failure, pacemaker. Interventions : Maintained a safe and therapeutic environment, ensured contract for safety while on the unit, provided clear and simple instructions, attempted to orient to reality, monitored for sexual inappropriateness and provided redirection as needed, endorsed pt's behaviors to GERMAN Plummer and obtained orders for pt. to begin a mood stabilizer, and maintained Q 15min safety checks. Response : Patient was in his room at [facility], but he had been up earlier. He was apparently being sexually inappropriate in the night. He continues to be fast talking and hard to understand. There was a while today, when he might have [facility], but he is on too many medications to be managed there. Providers will work to get them more streamlined, and hopefully eliminate some. In the meantime, he has been referred to [facility]. He cant return to [facility], because he states that he will commit suicide if he has to go there. He will stay here until appropriate placement is settled. Patient will be placed on LOS due to his approaching 2 women on the unit. Plan : Pt. requires a safe and supportive environment and medication adjustments. Patient has been referred to [facility].
[2022-07-05] MEDS: divalproex sod 250mg ER (24-hour) tablet PO SCH (19:37)
[2022-07-05 20:00] VITALS: BP 132/57
[2022-07-05] MEDS: Melatonin 3mg tablet PO SCH (20:09)
--- NOTE | 2022-07-05 22:41 | NUR ---
Nursing Progress Note: Problem : Pt was admitted on 5150 for DTS from [facility]. Pt tried to overdose on Benadryl and continues to endorse suicidal thoughts, saying if he goes back there right now he will try to kill himself again. Pt has history of schizophrenia, HTN, CAD, heart failure, pacemaker. Interventions : Maintained a safe and therapeutic environment, ensured contract for safety while on the unit, provided clear and simple instructions, attempted to orient to reality, monitored for sexual inappropriateness and provided redirection as needed, endorsed pt's behaviors to GERMAN Plummer and obtained orders for pt. to begin a mood stabilizer, and maintained Q 15min safety checks. Response : Patient received sitting in community room watching tv with other patients. Patient is observed going back and forth between his room and community complaining about his sitter. Patient began asking for his medications early. Patient became irritated when nurse told patient he couldn't have his medication at 6pm. Patient continued to ask for early medications and make statements about yesterdays nurse. Patient was given night medications all except melatonin which he took an hour latter. Patient returned to room after last medication. Plan : Pt. requires a safe and supportive environment and medication adjustments. Patient has been referred to [facility].
[2022-07-06] MEDS: apixaban 5mg tablet PO SCH ×2 (07:18→19:36)
[2022-07-06] MEDS: lisinopril 10 MG tablet PO SCH (07:18)
[2022-07-06] MEDS: acyclovir 200 MG capsule PO SCH ×2 (07:18→19:36)
[2022-07-06] MEDS: carVEDilol 3.125mg tablet PO SCH ×2 (07:18→19:35)
[2022-07-06] MEDS: hyDRALAzine 10mg tablet PO SCH ×3 (07:19→20:14)
[2022-07-06] MEDS: atorvastatin 20mg tablet PO SCH (07:19)
[2022-07-06] MEDS: sertraline 25mg tablet PO SCH (07:19)
[2022-07-06] MEDS: tamsulosin 0.4mg capsule PO SCH (07:19)
[2022-07-06] MEDS: furosemide 40mg tablet PO SCH (07:19)
[2022-07-06 08:00] VITALS: BP 145/80
--- NOTE | 2022-07-06 08:28 | NUR ---
DECLINED AT [facility] Per Tony Hunt [facility] Principal Java Developer, "It was decided that client has been declined for [facility] admission due to clients legal history on ongoing/current behaviors; they do not feel client is appropriate for this program." EDWINA Hardy
[2022-07-06] MEDS: spironolactone 25 MG tablet PO SCH (17:08)
--- NOTE | 2022-07-06 17:44 | NUR ---
Nursing Progress Note: Problem : Pt was admitted on 5150 for DTS from [facility]. Pt tried to overdose on Benadryl and continues to endorse suicidal thoughts, saying if he goes back there right now he will try to kill himself again. Pt has history of schizophrenia, HTN, CAD, heart failure, pacemaker. Interventions : Maintained a safe and therapeutic environment, ensured contract for safety while on the unit, provided clear and simple instructions, attempted to orient to reality, monitored for sexual inappropriateness and provided redirection as needed, endorsed pt's behaviors to GERMAN Plummer and obtained orders for pt. to begin a mood stabilizer, and maintained Q 15min safety checks. Response: Patient ate in his room today. Hes compliant with medications, then spends the day in the group room watching TV. He will stay until his medications are looked at, and hopefully there will be fewer that he has to keep track of. He has been saying that there are too many to keep track of. Patient continues to be LOS, and has not had any behavioral problems. Tried to explain to him that his medications will be looked at and streamlined to make it easier for him, but the patient just talks over me, and doesnt listen. Plan : Pt. requires a safe and supportive environment and medication adjustments. Patient has been declined by [facility].
[2022-07-06] MEDS: divalproex sod 250mg ER (24-hour) tablet PO SCH (19:35)
[2022-07-06] MEDS: Melatonin 3mg tablet PO SCH (19:35)
[2022-07-06 20:31] VITALS: BP 139/72
--- NOTE | 2022-07-06 21:01 | NUR ---
Nursing Progress Note: Problem : Pt was admitted on 5150 for DTS from [facility]. Pt tried to overdose on Benadryl and continues to endorse suicidal thoughts, saying if he goes back there right now he will try to kill himself again. Pt has history of schizophrenia, HTN, CAD, heart failure, pacemaker. Interventions : Maintained a safe and therapeutic environment, ensured contract for safety while on the unit, provided clear and simple instructions, attempted to orient to reality, monitored for sexual inappropriateness and provided redirection as needed, endorsed pt's behaviors to GERMAN Plummer and obtained orders for pt. to begin a mood stabilizer, and maintained Q 15min safety checks. Response: Patient received sitting in room reading at beginning of shift. Patient is later found pacing around hallways talking to other patients. Patient begins asking nurse about his night medications and which ones he can have early. Patients speech is garbled and difficult to interpret. Patient is reminded of what medications he can have early and is encouraged to have patience. Patient returned to community room to watch tv. Patient again has to be reminded to stay calm when he starts getting agitated that his medications are 3 mins late. Patient takes night medications without issue and returns to community room until eventually going to bed. Plan : Pt. requires a safe and supportive environment and medication adjustments. Patient has been declined by [facility].
[2022-07-06] MEDS ORDERED: QUETIAPINE 50 MG TAB.SR.24H PO ONE (23:45)
[2022-07-07] MEDS: apixaban 5mg tablet PO SCH (07:36)
[2022-07-07] MEDS: tamsulosin 0.4mg capsule PO SCH (07:36)
[2022-07-07] MEDS: furosemide 40mg tablet PO SCH (07:36)
[2022-07-07] MEDS: hyDRALAzine 10mg tablet PO SCH ×2 (07:36→13:19)
[2022-07-07] MEDS: atorvastatin 20mg tablet PO SCH (07:36)
[2022-07-07] MEDS: carVEDilol 3.125mg tablet PO SCH (07:36)
[2022-07-07] MEDS: acyclovir 200 MG capsule PO SCH (07:37)
[2022-07-07] MEDS: sertraline 25mg tablet PO SCH (07:37)
[2022-07-07] MEDS: lisinopril 10 MG tablet PO SCH (07:37)
[2022-07-07] MEDS: loperamide 2mg capsule PO PRN (07:57)
[2022-07-07 08:45] VITALS: BP 119/69
[2022-07-07] MEDS ORDERED: FURO40TA4 PO (13:01)
[2022-07-07] MEDS ORDERED: SERT-432 PO (13:01)
[2022-07-07] MEDS ORDERED: ACYC-1 PO (13:01)
[2022-07-07] MEDS ORDERED: MELA3TAB41 PO (13:01)
[2022-07-07] MEDS ORDERED: SPIR25TA5 PO (13:01)
[2022-07-07] MEDS ORDERED: hyDRALAzine tablet PO (13:01)
[2022-07-07] MEDS ORDERED: FLO0.4C PO (13:01)
[2022-07-07] MEDS ORDERED: APIX5TAB3 PO (13:01)
[2022-07-07] MEDS ORDERED: CARV3.122 PO (13:01)
[2022-07-07] MEDS ORDERED: DIVA250T8 PO (13:01)
[2022-07-07] MEDS ORDERED: LISI10TA27 PO (13:01)
[2022-07-07] MEDS ORDERED: ATOR20TA66 PO (13:01)
[2022-07-07 13:15] VITALS: BP 148/63
[2022-07-07 13:19] VITALS: BP_SYST 148
[2022-07-07] MEDS ORDERED: fluticasone nasal spray 16GM bottle NS PRN (14:25)
--- NOTE | 2022-07-07 14:48 | NUR ---
Nursing Progress Note: Problem : Pt was admitted on 5150 for DTS from [facility]. Pt tried to overdose on Benadryl and continues to endorse suicidal thoughts, saying if he goes back there right now he will try to kill himself again. Pt has history of schizophrenia, HTN, CAD, heart failure, pacemaker. Interventions : Maintained a safe and therapeutic environment, ensured contract for safety, provided clear and simple instructions, provided redirection and clear boundaries, and maintained LOS. Response : Received pt. sleeping in bed at the beginning of the shift, he remains on LOS r/t previous inappropriateness and intrusiveness with female peers. Pt. greeted this gag writer appropriately, however presents as restless and perseverates on his desire to discharge. When questioned regarding S/I, pt. denies this and states, "Not anymore." Pt. continues to present with hyperverbal and pressured speech making him difficult to understand. He talks over others making him difficult to communicate with. Pt. does not make any delusional statements or sexually inappropriate comments this shift. Pt. continued to perseverate on his desire to discharge throughout the shift repeating over and over that he needs to leave by 1500 to go to the mental health office. He made multiple telephone calls to the [facility] patient's rights advocate, and had difficulty using the telephone and required staff to dial the number for him. Pt. was provided with education (regarding waiting for MD to discharge him), redirection, and clear boundaries as needed from staff with effectiveness. Plan : Pt. continues to require a safe and supportive environment.
--- NOTE | 2022-07-07 15:07 | NUR ---
Discharge Note: Pt. was discharged from the unit at 1430 accompanied by staff and security to a cab which will be taking him to [facility] where he will connect with mental health services. His belongings were inventoried and returned to him by the [facility]. This health underwriter reviewed medications and discharge instructions with the patient and he reported understanding. Pt. is able to contract for safety and will be staying at the [facility]. His medications were called in to his preferred pharmacy and pt. was provided with bus passes to accommodate transportation.
== END 2022-07-07 14:46 | disposition home or self-care (01) | DRG 885 ==
LOC: ADULT MH 18:30
PROVIDERS: ADMIT Psychiatry & Neurology Psychiatry; ATTEND Psychiatry & Neurology Psychiatry
DX: F32.2 Major depressive disorder, single episode, severe without psychotic features (principal); I11.0 Hypertensive heart disease with heart failure; R45.851 Suicidal ideations; F20.9 Schizophrenia, unspecified; I50.9 Heart failure, unspecified; R11.0 Nausea; N40.0 Benign prostatic hyperplasia without lower urinary tract symptoms; E78.00 Pure hypercholesterolemia, unspecified; B00.9 Herpesviral infection, unspecified; E78.5 Hyperlipidemia, unspecified; F43.10 Post-traumatic stress disorder, unspecified; F39 Unspecified mood [affective] disorder; J30.9 Allergic rhinitis, unspecified; I48.0 Paroxysmal atrial fibrillation; F29 Unspecified psychosis not due to a substance or known physiological condition; F43.22 Adjustment disorder with anxiety; I25.10 Atherosclerotic heart disease of native coronary artery without angina pectoris; Z79.01 Long term (current) use of anticoagulants; Z82.3 Family history of stroke; Z95.0 Presence of cardiac pacemaker; Z82.49 Family history of ischemic heart disease and other diseases of the circulatory system; Z86.718 Personal history of other venous thrombosis and embolism; Z88.8 Allergy status to other drugs, medicaments and biological substances; Z79.899 Other long term (current) drug therapy; Z80.9 Family history of malignant neoplasm, unspecified
CPT/HCPCS: 36415; 80048; 80061; 83036; 87081

== ENCOUNTER 2022-07-28 12:02 | Emergency (ER) | payer MEDICARE, MEDICAID ==
[~2022-07-28] VITALS: Ht 175.3 cm; Wt 75.5 kg
[~2022-07-28 12:02] MED LIST: ACYC-1 PO; APIX5TAB3 PO; ATOR20TA66 PO; ATOR40TA PO; CARV3.122 PO; DIVA250T8 PO; FLO0.4C PO; FURO40TA4 PO; LISI10TA27 PO; MELA3TAB41 PO; SERT-432 PO; SPIR25TA5 PO; hyDRALAzine tablet PO
[2022-07-28 12:08] VITALS: BP 128/68
[2022-07-28] MEDS ORDERED: orphenadrine citrate 60mg/2ml inj. IM ONE (12:45)
== END 2022-07-28 13:41 | disposition home or self-care (01) ==
LOC: ER 12:04
DX: M54.6 Pain in thoracic spine (principal); F20.9 Schizophrenia, unspecified; Z88.8 Allergy status to other drugs, medicaments and biological substances; Z79.899 Other long term (current) drug therapy
CPT/HCPCS: 96372; 99283; J2360

== ENCOUNTER 2022-07-28 17:04 | Emergency (ER) | payer MEDICARE, MEDICAID ==
[~2022-07-28] VITALS: Ht 175.3 cm; Wt 70.9 kg
[2022-07-28 17:29] VITALS: BP 125/57
== END 2022-07-28 19:47 | disposition left against medical advice (07) ==
LOC: ER 17:04
DX: M54.2 Cervicalgia (principal); F20.9 Schizophrenia, unspecified; Z79.899 Other long term (current) drug therapy; Z88.8 Allergy status to other drugs, medicaments and biological substances; Z79.1 Long term (current) use of non-steroidal anti-inflammatories (NSAID)
CPT/HCPCS: 72040; 99283

== ENCOUNTER 2022-08-02 15:13 | Emergency (ER) | payer MEDICARE, MEDICAID ==
[~2022-08-02] VITALS: Ht 175.3 cm; Wt 75.0 kg
[2022-08-02 15:20] VITALS: BP 122/45
== END 2022-08-02 21:46 | disposition left against medical advice (07) ==
LOC: ER 15:14
DX: M54.2 Cervicalgia (principal); Z53.21 Procedure and treatment not carried out due to patient leaving prior to being seen by health care provider

== ENCOUNTER 2023-08-12 16:45 | Emergency (ER) | payer MEDICARE, MEDICAID ==
[~2023-08-12] VITALS: Ht 175.3 cm; Wt 72.7 kg
[2023-08-12 18:46] LABS: BASOPHILS # (AUTO) 0.1 X10'3 (0-0.2); BASOPHILS % (AUTO) 0.6 % (0-1); EOSINOPHILS # (AUTO) 0.1 X10'3 (0-0.9); EOSINOPHILS % (AUTO) 0.6 % (0-6); HEMATOCRIT 41.9 % (42.0-52.0); HEMOGLOBIN 13.8 g/dl (14.0-17.9); LYMPHOCYTES # (AUTO) 2.6 X10'3 (1.1-4.8); LYMPHOCYTES % (AUTO) 16.6 % (21-51); MEAN CORPUSCULAR HEMOGLOBIN 30.4 PG (27.0-31.0); MEAN CORPUSCULAR HGB CONC 32.8 g/dL (33.0-36.5); MEAN CORPUSCULAR VOLUME 92.8 FL (78-98); MEAN PLATELET VOLUME 8.6 FL (7.4-10.4); MONOCYTES # (AUTO) 1.4 X10'3 (0-0.9); MONOCYTES % (AUTO) 8.8 % (2-12); NEUTROPHILS # (AUTO) 11.6 X10'3 (1.8-7.7); NEUTROPHILS % (AUTO) 73.4 % (42-75); PLATELET COUNT 228 X10'3 (140-440); RED BLOOD COUNT 4.52 X10'6 (4.70-6.10); RED CELL DISTRIBUTION WIDTH 14.4 % (11.5-14.5); WHITE BLOOD COUNT 15.8 X10'3 (4.5-11.0)
[2023-08-12 18:59] LABS: ALANINE AMINOTRANSFERASE 40 U/L (12-78); ALBUMIN 3.7 G/DL (3.4-5.0); ALBUMIN/GLOBULIN RATIO 0.9 (1.1-1.5); ALKALINE PHOSPHATASE 78 IU/L (46-116); ANION GAP 7 (8-16); ASPARTATE AMINO TRANSFERASE 29 U/L (10-37); BILIRUBIN,TOTAL 0.6 MG/DL (0.1-1.0); BLOOD UREA NITROGEN 20 MG/DL (7-18); BUN/CREATININE RATIO 21.5 (10.0-20.0); CALCIUM 9.2 MG/DL (8.5-10.1); CHLORIDE 99 MMOL/L (99-107); CREATININE 0.93 MG/DL (0.60-1.10); GLUCOSE 118 MG/DL (70-104); POTASSIUM 3.8 MMOL/L (3.5-5.1); SODIUM 136 MMOL/L (135-145); TOTAL CARBON DIOXIDE 29.6 MMOL/L (24-32); TOTAL PROTEIN 7.6 G/DL (6.4-8.2); eCRCL 76 ML/MIN; eGFR 81 ML/MIN
[2023-08-12] MEDS ORDERED: CEPH-585 PO (19:12)
[2023-08-12] MEDS ORDERED: SULF1TAB49 PO (19:12)
[2023-08-12 20:03] VITALS: BP 124/89; PULSE 95; RESP 16; TEMP 99.3; O2SAT 97
== END 2023-08-12 20:05 | disposition home or self-care (01) ==
LOC: ER 16:46
DX: L03.116 Cellulitis of left lower limb (principal); Z88.8 Allergy status to other drugs, medicaments and biological substances; Z79.899 Other long term (current) drug therapy
CPT/HCPCS: 36415; 80053; 85025; 85379; 99284

== ENCOUNTER 2025-04-03 15:05 | Emergency (ER) | payer MEDICARE, MEDICAID ==
[~2025-04-03] VITALS: Ht 175.3 cm; Wt 68.9 kg
[~2025-04-03 15:05] MED LIST changes: -FLO0.4C PO; +TAMS-55 PO
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
[2025-04-03 16:41] LABS: MEAN PLATELET VOLUME 9.2 FL (7.4-10.4); RED CELL DISTRIBUTION WIDTH 13.9 % (11.5-14.5)
[2025-04-03 16:55] LABS: CREATININE 0.71 MG/DL (0.60-1.10); TOTAL CARBON DIOXIDE 28.3 MMOL/L (24-32); eCRCL 96 ML/MIN; eGFR > 90 ML/MIN
[2025-04-03 17:26] LABS: ETHANOL < 10 MG/DL (<10)
[2025-04-03 17:33] LABS: LEUKOCYTE ESTERASE ,URINE NEGATIVE (Neg); NITRITES, URINE NEGATIVE (Neg); OCCULT BLOOD,URINE NEGATIVE (Neg)
[2025-04-03 17:35] LABS: UA COLLECTION TYPE CLN CATCH MIDSTREAM
[2025-04-03 17:43] LABS: URINE AMPHETAMINE SCREEN NEGATIVE (Neg); URINE BARBITUATE SCREEN NEGATIVE (Neg); URINE BENZODIAZEPINES SCREEN NEGATIVE (Neg); URINE COCAINE SCREEN NEGATIVE (Neg); URINE METHADONE SCREEN NEGATIVE (Neg); URINE OPIATE SCREEN NEGATIVE (Neg); URINE PHENCYCLIDINE SCREEN NEGATIVE (Neg)
[2025-04-03 18:05] VITALS: BP 155/82; PULSE 75; TEMP 97.7; O2SAT 98
[2025-04-03 18:06] VITALS: RESP 16
== END 2025-04-03 18:11 | disposition home or self-care (01) ==
LOC: ER 15:06
DX: Z13.9 Encounter for screening, unspecified (principal); F20.9 Schizophrenia, unspecified; Z88.8 Allergy status to other drugs, medicaments and biological substances; Z79.899 Other long term (current) drug therapy
CPT/HCPCS: 36415; 80053; 80305; 81003; 85025; 99283; G0480; 80320

== ENCOUNTER 2025-04-06 21:27 | Emergency (ER) | payer OTHER, MEDICARE, MEDICAID ==
[~2025-04-06] VITALS: Ht 175.3 cm; Wt 87.7 kg
[2025-04-06 21:42] VITALS: BP 135/71; PULSE 77; O2SAT 98
[2025-04-07] MEDS: CefTRIAXone 500MG IM Kit w/LIDOcaine IM ONE (00:04)
[2025-04-07 00:31] LABS: LEUKOCYTE ESTERASE ,URINE NEGATIVE (Neg); NITRITES, URINE NEGATIVE (Neg); OCCULT BLOOD,URINE NEGATIVE (Neg)
[2025-04-07 00:38] LABS: UA COLLECTION TYPE NON-SPECIFIED
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
[2025-04-07] MEDS: TINIDAZOLE 500 MG TABLET PO ONE (01:36)
[2025-04-07] MEDS: CefTRIAXone 500MG IM Kit w/LIDOcaine (for pt below or = to 150kg) IM ONE (01:38)
[2025-04-07 01:57] VITALS: RESP 14
[2025-04-07 03:36] VITALS: TEMP 97.8
== END 2025-04-07 02:35 | disposition home or self-care (01) ==
LOC: ER 21:28 → EEVIPCON 21:28 → ER 04-07 02:35
DX: M54.9 Dorsalgia, unspecified (principal); F20.9 Schizophrenia, unspecified; Z79.899 Other long term (current) drug therapy; Z88.8 Allergy status to other drugs, medicaments and biological substances
CPT/HCPCS: 81003; 96372; 99284; J0696

== ENCOUNTER 2025-04-20 20:59 | Emergency (ER) | payer MEDICARE, MEDICAID ==
[~2025-04-20] VITALS: Ht 175.3 cm; Wt 73.0 kg
[2025-04-20 21:36] VITALS: BP 118/52; PULSE 75; RESP 16; TEMP 98.2; O2SAT 99
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
== END 2025-04-21 01:18 | disposition home or self-care (01) ==
LOC: EEVIPCON 21:00 → ER 21:00
DX: R10.9 Unspecified abdominal pain (principal); F20.9 Schizophrenia, unspecified; Z88.8 Allergy status to other drugs, medicaments and biological substances; Z79.899 Other long term (current) drug therapy
CPT/HCPCS: 99282; 99284

== ENCOUNTER 2025-04-25 23:03 | Emergency (ER) | payer MEDICARE, MEDICAID ==
[~2025-04-25] VITALS: Ht 175.3 cm; Wt 90.5 kg
[2025-04-25 23:26] VITALS: BP 170/69; PULSE 81; RESP 18; TEMP 97.8; O2SAT 98
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
== END 2025-04-26 00:32 | disposition home or self-care (01) ==
LOC: ER 23:05
DX: Z00.00 Encounter for general adult medical examination without abnormal findings (principal); F20.9 Schizophrenia, unspecified; Z88.8 Allergy status to other drugs, medicaments and biological substances; Z79.899 Other long term (current) drug therapy
CPT/HCPCS: 99282